=== PATIENT | female | born 1970 | race Caucasian/White ===

== ENCOUNTER 2020-06-26 19:40 | Emergency (ER) | payer MEDICAID ==
[~2020-06-26] VITALS: Ht 154.9 cm; Wt 69.4 kg
[2020-06-26 19:50] VITALS: BP 134/60
[2020-06-26] MEDS ORDERED: LORazepam 1 MG TAB PO ONE (20:05)
[2020-06-26] MEDS ORDERED: IBUPROFEN 400 MG TAB PO ONE (20:05)
[2020-06-26] MEDS ORDERED: NAPR-54 PO (20:17)
[2020-06-26 20:44] VITALS: BP 134/60
== END 2020-06-26 20:43 | disposition home or self-care (01) ==
LOC: MED 19:40 → EDBD 19:40 → MED 20:43
DX: S16.1XXA Strain of muscle, fascia and tendon at neck level, initial encounter (principal); S29.012A Strain of muscle and tendon of back wall of thorax, initial encounter; I10 Essential (primary) hypertension; Z79.899 Other long term (current) drug therapy; Z98.890 Other specified postprocedural states; V89.2XXA Person injured in unspecified motor-vehicle accident, traffic, initial encounter; Y93.89 Activity, other specified; Y92.89 Other specified places as the place of occurrence of the external cause; Y99.8 Other external cause status
CPT/HCPCS: 99283